=== PATIENT | female | born 1955 | race African-American/Black ===

== ENCOUNTER 2016-11-01 18:28 | Inpatient (IN) | payer OTHER ==
[~2016-11-01] VITALS: Ht 160 cm; Wt 40.8 kg
--- NOTE | ~2016-11-01 | EKG ---
[address] [place] [address] ELECTROCARDIOGRAM REPORT Name: CARINAROLY Room #: 463-P ADM IN M.R.#: [id number] Admission: 11/01/16 Attend Phys: Damián Baxter MD Discharge: Date of : 53 Report #: [id number] THIS REPORT FOR: //name// [facility] ED Test Date: 2016-11-01 Test Time: 18:40:23 Pat Name: ROLY LIM Department: Room: 46 Gender: F Security Messenger: KENY : 1955 Requested By: Avtar Perez Order Number: [id number] MD: Bogdan Lopez Measurements Intervals [place] Rate: 113 P: 99 OK: 136 QRS: 58 QRSD: 123 T: QT: 383 QTc: 526 Interpretive Statements Sinus tachycardia Nonspecific ST and T wave abnormality Baseline wander in lead(s) II No previous ECG available for comparison Electronically Signed On 11-02-2016 7:58:15 CDT by Bogdan Lopez [email or web address] <ELECTRONICALLY SIGNED> By: Bogdan Lopez MD, [facility] 11/02/16 0758 1840 1840 Bogdan Lopez MD, [facility] /EPI
[~2016-11-01 18:28] MED LIST: FLEXERIL PO; GLUCOPHAGE1000 MG PO; HYDROCODON-ACE1 EAC7 PO; LANTUS SUBQ; LOSARTAN POTASS50 MG PO; NOVOLOG100 UNIT/1; OMEPRAZOLE20 M2 PO; REGLAN 10 MG TA10 MG PO
[2016-11-01 18:29] VITALS: BP 191/100
[2016-11-01 19:00] LABS: ABSOLUTE NEUTROPHILS 7.1 thou/uL (1.4-8.2); EOSINOPHILS 0.1 % (0.0-3.0); HEMATOCRIT 35.8 % (37.0-47.0)
[2016-11-01 19:04] LABS: BASOPHILS 0.3 % (0.0-2.0); LYMPHOCYTES 30.4 % (24.0-44.0); MCH 28.7 pg (26.0-34.0); MCHC 33.6 g/dL (28.0-37.0); MCV 85.5 fL (80.0-100.0); MONOCYTES 2.5 % (1.0-8.0); PLATELET COUNT 149 thou/uL (150-400); POLYS 66.7 % (36.0-66.0); RBC 4.18 mil/uL (4.20-5.00); RDW 12.1 % (10.5-14.5); WBC 10.6 thou/uL (4.0-11.0)
[2016-11-01 19:05] LABS: ANION GAP 4 mmol/L (7-16); BUN 5 mg/dL (7-18); CALCIUM 9.3 mg/dL (8.5-10.1); CHLORIDE 99 mmol/L (98-107); CO2 32 mmol/L (21-32); CREATININE 0.8 mg/dL (0.6-1.0); GLUCOSE 395 mg/dL (74-106); MANUAL DIFF NO; POTASSIUM 4.1 mmol/L (3.5-5.1); SODIUM 135 mmol/L (136-145)
[2016-11-01 19:13] LABS: MAGNESIUM 1.9 mg/dL (1.8-2.4); TROPONIN-I < 0.04 ng/mL (<0.04-0.07)
[2016-11-01 19:40] LABS: ABG SAMPLE TYPE ARTERIAL; BE(vivo) 6.7 mmol/L (-2 to +3); HCO3 30.6 mmol/L (22.0-26.0); LACTATE 1.09 mmol/L (0.5-2.0); O2(CT) 16.8 mL/dL (15.0-23.0); O2Hb 92.3 % (92.0-98.0); PO2 71.7 mmHg (80.0-100.0); STICK SITE R.RADIAL; pH 7.491 (7.360-7.450); sO2 95.5 % (92.0-98.0); tCO2 31.9 mmol/L (24.0-30.0)
[2016-11-01 19:41] LABS: ALBUMIN 2.8 g/dL (3.4-5.0); DIRECT BILIRUBIN 0.1 mg/dL (<0.1-0.3); TOTAL BILIRUBIN 0.5 mg/dL (<0.1-1.0); TOTAL PROTEIN 8.9 g/dL (6.4-8.2)
[2016-11-01 20:34] LABS: URINE BILIRUBIN NEGATIVE (Negative); URINE BLOOD 2+ (Negative); URINE COLOR YELLOW; URINE GLUCOSE-RANDOM* 3+ (Negative); URINE KETONES NEGATIVE (Negative); URINE LEUKOCYTES-REFLEX NEGATIVE (Negative); URINE PROTEIN (DIPSTICK) 2+ (Negative); URINE SPECIFIC GRAVITY 1.015 (1.003-1.035); URINE UROBILINOGEN 0.2 E.U./dl (0.2-1.0)
[2016-11-01] MEDS ORDERED: TOUJEO SOL300 UNIT/1 SUBQ (20:37)
[2016-11-01] MEDS ORDERED: VITAMIN D3400 UNIT PO (20:37)
[2016-11-01] MEDS ORDERED: REGLAN 10 MG TA10 MG PO (20:38)
[2016-11-01] MEDS ORDERED: COZAAR 50 MG TA50 M2 PO (20:38)
[2016-11-01] MEDS ORDERED: OMEPRAZOLE20 M2 PO (20:38)
[2016-11-01] MEDS ORDERED: METFORMIN HCL500 MG PO (20:39)
[2016-11-01] MEDS ORDERED: ZANAFLEX4 MG PO (20:39)
[2016-11-01] MEDS ORDERED: HUMALOG100 UNIT/2 SUBQ (20:40)
[2016-11-01] MEDS ORDERED: MIRTAZAPINE15 M1 SUBLING (20:40)
[2016-11-01 20:51] LABS: CASTS None Seen /LPF (None Seen); CRYSTALS None Seen /LPF (None Seen); SQUAMOUS 0-3 Few /LPF (0-3); URINE RBC 3-10 Few /HPF (0-2); URINE WBC-REFLEX 0-5 Rare /HPF (0-5); YEAST-REFLEX Present (None Seen)
[2016-11-01 22:20] VITALS: BP 180/111
[2016-11-02 04:45] VITALS: BP 105/60
[2016-11-02 07:58] VITALS: BP 107/54
[2016-11-02 12:30] VITALS: BP 103/58
[2016-11-02 15:38] LABS: FOLIC ACID 17.3 ng/mL (8.6-58.9)
[2016-11-02 17:20] VITALS: BP 151/69
[2016-11-02 20:16] VITALS: BP 136/94
[2016-11-02 21:05] LABS: CHOLESTEROL 137 mg/dL (<200); HDL CHOLESTEROL 66 mg/dL (>40); LDL CHOLESTEROL 56 mg/dL (<100); TC:HDL 2.1 Ratio (Not establshd); TRIGLYCERIDE 75 mg/dL (<150); VLDL 15 mg/dL (<40)
[2016-11-03 03:14] LABS: GLYCOHEMOGLOBIN (HGB A1C) 11.8 % (4.8-5.6)
[2016-11-03 04:06] VITALS: BP 130/66
[2016-11-03 06:38] LABS: ABSOLUTE NEUTROPHILS 8.3 thou/uL (1.4-8.2); BASOPHILS 0.2 % (0.0-2.0); EOSINOPHILS 0.5 % (0.0-3.0); HEMATOCRIT 29.4 % (37.0-47.0); LYMPHOCYTES 30.8 % (24.0-44.0); MCH 28.5 pg (26.0-34.0); MCHC 33.1 g/dL (28.0-37.0); MCV 85.9 fL (80.0-100.0); MONOCYTES 3.6 % (1.0-8.0); PLATELET COUNT 91 thou/uL (150-400); POLYS 64.9 % (36.0-66.0); RBC 3.43 mil/uL (4.20-5.00); RDW 12.4 % (10.5-14.5); WBC 12.7 thou/uL (4.0-11.0)
[2016-11-03 06:43] LABS: HEMOGLOBIN 9.8 gm/dL (12.0-15.0); MANUAL DIFF NO
[2016-11-03 06:48] LABS: CALCIUM 7.6 mg/dL (8.5-10.1); CREATININE 0.7 mg/dL (0.6-1.0); MAGNESIUM 1.6 mg/dL (1.8-2.4); POTASSIUM 3.2 mmol/L (3.5-5.1)
[2016-11-03 07:37] VITALS: BP 133/67
[2016-11-03 11:17] VITALS: BP 125/57
[2016-11-03 16:13] VITALS: BP 141/66
[2016-11-03 20:40] VITALS: BP 114/57
[2016-11-04 04:28] VITALS: BP 118/60
[2016-11-04 07:53] VITALS: BP 132/62
[2016-11-04] MEDS ORDERED: NYSTATIN 1100000 U/M SWISH&SPIT (10:58)
[2016-11-04 12:10] VITALS: BP 154/60
[2016-11-04] MEDS ORDERED: TOUJEO SOL300 UNIT/1 SUBQ (12:13)
[2016-11-04] MEDS ORDERED: HUMALOG100 UNIT/2 SUBQ (12:13)
[2016-11-04 14:09] LABS: ALPHA TOCOPHEROL 6.5 mg/L (6.5-21.5)
[2016-11-04 19:42] VITALS: BP 118/72
[2016-11-05 04:28] VITALS: BP 130/80
[2016-11-05 07:23] VITALS: BP 129/75
[2016-11-05 11:44] VITALS: BP 110/74
[2016-11-05 15:55] VITALS: BP 135/64
[2016-11-05 19:30] VITALS: BP 137/66
[2016-11-06 03:55] VITALS: BP 112/62
[2016-11-06 07:45] VITALS: BP 110/66
[2016-11-06 11:45] VITALS: BP 138/79
[2016-11-06 12:30] VITALS: BP 122/72
[2016-11-06 14:03] LABS: HEMATOCRIT 31.1 % (37.0-47.0); HEMOGLOBIN 10.2 gm/dL (12.0-15.0); MCHC 32.9 g/dL (28.0-37.0); RBC 3.54 mil/uL (4.20-5.00); RDW 12.6 % (10.5-14.5); WBC 7.7 thou/uL (4.0-11.0)
[2016-11-06 15:43] LABS: URINE BILIRUBIN NEGATIVE (Negative); URINE BLOOD 3+ (Negative); URINE GLUCOSE-RANDOM* NEGATIVE (Negative); URINE KETONES TRACE (Negative); URINE LEUKOCYTES-REFLEX TRACE (Negative); URINE PROTEIN (DIPSTICK) 2+ (Negative); URINE UROBILINOGEN 0.2 E.U./dl (0.2-1.0)
[2016-11-06 15:44] LABS: URINE COLOR RED
[2016-11-06 15:45] LABS: SQUAMOUS 0-3 Few /LPF (0-3)
[2016-11-06 15:46] LABS: CASTS None Seen /LPF (None Seen); CRYSTALS None Seen /LPF (None Seen); URINE RBC >20 Many /HPF (0-2); URINE WBC-REFLEX 6-15 Few /HPF (0-5)
[2016-11-06 17:39] VITALS: BP 123/70
[2016-11-06 20:21] VITALS: BP 113/66
[2016-11-07 04:19] VITALS: BP 122/65
[2016-11-07 08:08] VITALS: BP 134/63
[2016-11-07] MEDS ORDERED: DIFLUCAN200 MG PO (11:10)
[2016-11-07] MEDS ORDERED: HUMALOG100 UNIT/2 SUBQ (11:10)
[2016-11-07] MEDS ORDERED: TOUJEO SOL300 UNIT/1 SUBQ (11:10)
[2016-11-07 12:04] VITALS: BP 142/64
[2016-11-07 15:47] VITALS: BP 133/71
[2016-11-07 19:43] VITALS: BP 128/69
[2016-11-08 03:53] VITALS: BP 131/67
[2016-11-08 08:37] VITALS: BP 134/75
[2016-11-08 11:48] VITALS: BP 139/72
[2016-11-08 16:01] VITALS: BP 125/67
[2016-11-08 20:00] VITALS: BP 127/68
[2016-11-09 04:00] VITALS: BP 136/77
[2016-11-09 10:07] LABS: A/G RATIO 0.6 (0.7-1.7); ALBUMIN 2.7 g/dL (2.9-4.4); ALPHA 1 0.2 g/dL (0.0-0.4); ALPHA 2 0.8 g/dL (0.4-1.0); BETA 1.1 g/dL (0.7-1.3); GAMMA 2.5 g/dL (0.4-1.8); M-SPIKE Not Observed g/dL (Not Observed)
[2016-11-09] MEDS ORDERED: TOUJEO SOL300 UNIT/1 SUBQ (10:15)
[2016-11-09 11:30] VITALS: BP 128/51
[2016-11-09 12:30] VITALS: BP 128/51
[2016-11-09 15:47] VITALS: BP 128/65
== END 2016-11-09 20:00 | disposition home health service (06) | DRG 637 ==
LOC: ER 18:28 → EROBS 21:52 → 4W 21:52
PROVIDERS: Emergency Medicine; Internal Medicine; Nurse Practitioner Acute Care; Psychiatry & Neurology Neurology
DX: E11.65 Type 2 diabetes mellitus with hyperglycemia (principal); G92 Toxic encephalopathy; E43 Unspecified severe protein-calorie malnutrition; Z68.1 Body mass index [BMI] 19.9 or less, adult; B37.49 Other urogenital candidiasis; I10 Essential (primary) hypertension; F32.9 Major depressive disorder, single episode, unspecified; R74.8 Abnormal levels of other serum enzymes; D72.829 Elevated white blood cell count, unspecified; R31.9 Hematuria, unspecified; M79.604 Pain in right leg; T43.025A Adverse effect of tetracyclic antidepressants, initial encounter; J44.9 Chronic obstructive pulmonary disease, unspecified; F17.210 Nicotine dependence, cigarettes, uncomplicated; Z79.84 Long term (current) use of oral hypoglycemic drugs; Z79.4 Long term (current) use of insulin; Z79.899 Other long term (current) drug therapy; Z88.8 Allergy status to other drugs, medicaments and biological substances; Y92.89 Other specified places as the place of occurrence of the external cause
CPT/HCPCS: 10045

== ENCOUNTER 2017-09-15 21:08 | Inpatient (IN) | payer OTHER ==
[~2017-09-15] VITALS: Ht 170.2 cm; Wt 52.5 kg
--- NOTE | ~2017-09-15 | EKG ---
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 Allergist Immunologist: [id number] : 1955 Requested By: Nevin Mckeon Order Number: [id number] MD: Bogdan Lopez Measurements Intervals [place] Rate: 93 P: 100 VA: 141 QRS: 25 QRSD: 82 T: 80 QT: 380 QTc: 473 Interpretive Statements Sinus rhythm Borderline low voltage, extremity leads Nonspecific ST segment abnormality Baseline wander in lead(s) V1 Compared to ECG 11/01/2016 18:40:23 Sinus tachycardia no longer present Electronically Signed On 09-18-2017 7:47:57 CDT by Bogdan Lopez [email or web address] <ELECTRONICALLY SIGNED> By: Bogdan Lopez MD, [facility] 09/18/17 0747 221 221 Bogdan Lopez MD, [facility] /EPI
--- NOTE | ~2017-09-15 | HC ---
[facility] [place] [address] CONSULTATION Name: CARINAROLY Room #: [facility]- ADM IN M.R.#: [id number] Admission: 09/15/17 Attend Phys: Johnathan Mckeon DO Discharge: Date of : 53 Report #: [id number] THIS REPORT FOR: //name// CC: ANAMARIA Mckeon DATE OF SERVICE: 09/16/2017 INFECTIOUS DISEASE CONSULTATION HISTORY OF PRESENT ILLNESS: A 61-year-old -[place] woman admitted through the Emergency Room with history of altered mental status. In the ER, found to have low glucose. Mental status did not change after infusion of glucose, neither did it improve after infusion of Narcan. The patient remains encephalopathic and unable to participate in the history and physical exam. All information on this patient is gathered from the review of records. PAST MEDICAL HISTORY: Previous episode of encephalopathy, undetermined etiology; anemia of chronic disease. Severe hypoalbuminemia. Diabetes mellitus. Chronic obstructive pulmonary disease. DRUG ALLERGIES: IBUPROFEN. MEDICATIONS: 2 grams IV every 8 hours, Levaquin 750 mg IV daily. She is also on famotidine, p.r.n. glucose, Glucagon, magnesium and potassium supplementation per protocol. She did receive naloxone and Zosyn IV. SOCIAL HISTORY: Unable to obtain. FAMILY HISTORY: Unable to obtain. REVIEW OF SYSTEMS: Unable to obtain. PHYSICAL EXAMINATION: GENERAL: Chronically ill-appearing woman, afebrile since admission. VITAL SIGNS: Temperature 97, pulse 97, respirations 20, BP 146/83 and O2 saturation is 100% on 2 liters oxygen nasal cannula. HEENT: The patient closing mouth tightly and so is she doing with her eyes. I wonder if this is purposeful. NECK: Stiff. The patient is stiff all over. Jugular venous congestion. LUNGS: Decreased breath sounds throughout. HEART: S1, S2. No gallop or murmur. ABDOMEN: Soft. No masses or megaly. PELVIC AND RECTAL EXAMINATION: Deferred. The patient's . EXTREMITIES: No clubbing, cyanosis. NEUROLOGIC: Unable to evaluate. [facility] [address] [place] [address] CONSULTATION Name: ROLY LIM Room #: [facility] IN .R.#: [id number] Admission: 09/15/17 Attend Phys: Johnathan Mckeon DO Discharge: Date of : 53 Report #: [id number] LABORATORY DATA: Sodium 140, potassium 3.2, CO2 of 30, BUN 14, creatinine 1, glucose 100. Calcium 8. Albumin 1.7 mg/dL. Ammonia back in 2016 was normal. Drug screen negative. WBC 24,100, hemoglobin 7.6 g/dL and platelets 235,000. Admission CBC, white blood cell count differential showing 88% neutrophils. TSH normal. Ferritin 269. Folate normal. B12 normal. Urinalysis revealed proteinuria, trace glucose, trace leukocyte esterase, microscopic hematuria and bacteriuria. ABGs: A pH of 7.46, pCO2 of 38, pO2 of 70 and bicarbonate 27. This set of gas was on 2 liters oxygen nasal cannula. MICROBIOLOGY DATA: Blood cultures pending. Stool for occult blood pending. RADIOLOGY EVALUATION: Chest x-ray revealed patchy right-sided pulmonary infiltrate. ASSESSMENT: 1. Altered mental status, undetermined etiology. 2. Question aspiration pneumonia. 3. Diabetes mellitus. SUGGESTIONS: Recommend ESR, CRP, procalcitonin and NT-proBNP. Discharge . Meropenem 500 IV q. 8 hours. Vancomycin to be dosed by pharmacy. Continue Levaquin. Fluid resuscitation. Dr. Mckeon, thank you for requesting my suggestions. <ELECTRONICALLY SIGNED> By: Dl Lang MD 09/17/17 0647 0647 1326 lD Lang MD /nt
[~2017-09-15 21:08] MED LIST changes: +COZAAR 50 MG TA50 M2 PO; +DIFLUCAN200 MG PO; +HUMALOG100 UNIT/2 SUBQ; +METFORMIN HCL500 MG PO; +MIRTAZAPINE15 M1 SUBLING; +NYSTATIN 1100000 U/M SWISH&SPIT; +TOUJEO SOL300 UNIT/1 SUBQ; +VITAMIN D3400 UNIT PO; +ZANAFLEX4 MG PO
[2017-09-15 21:10] VITALS: BP 146/83
[2017-09-15 21:42] LABS: URINE BILIRUBIN NEGATIVE (Negative); URINE BLOOD 3+ (Negative); URINE CLARITY CLEAR; URINE COLOR YELLOW; URINE GLUCOSE-RANDOM* TRACE (Negative); URINE KETONES NEGATIVE (Negative); URINE LEUKOCYTES NEGATIVE (Negative); URINE NITRITE NEGATIVE (Negative); URINE PROTEIN (DIPSTICK) 3+ (Negative); URINE UROBILINOGEN 0.2 E.U./dl (0.2-1.0)
[2017-09-15 21:48] LABS: AMP/METHAMP Negative (Negative); BARBITURATES Negative (Negative); BENZODIAZEPINES Negative (Negative); COCAINE Negative (Negative); METHADONE Negative (Negative); OPIATES Negative (Negative); PCP Negative (Negative)
[2017-09-15 21:51] LABS: SQUAMOUS 0-3 Few /LPF (0-3); URINE RBC >20 Many /HPF (0-2)
[2017-09-15 21:52] LABS: CASTS None Seen /LPF (None Seen); CRYSTALS None Seen /LPF (None Seen); URINE WBC 0-5 Rare /HPF (0-5)
[2017-09-15 22:00] VITALS: BP 133/70
[2017-09-15 22:01] LABS: ABSOLUTE NEUTROPHILS 12.1 thou/uL (1.4-8.2); BASOPHILS 0.2 % (0.0-2.0); HEMATOCRIT 21.6 % (37.0-47.0); HEMOGLOBIN 7.1 gm/dL (12.0-15.0); LYMPHOCYTES 9.6 % (24.0-44.0); MCH 29.1 pg (26.0-34.0); MCHC 33.1 g/dL (28.0-37.0); MCV 88.1 fL (80.0-100.0); MONOCYTES 2.2 % (1.0-8.0); PLATELET COUNT 226 thou/uL (150-400); RBC 2.45 mil/uL (4.20-5.00); RDW 12.6 % (10.5-14.5); WBC 13.7 thou/uL (4.0-11.0)
[2017-09-15 22:08] LABS: CALCIUM 7.6 mg/dL (8.5-10.1)
[2017-09-15 22:10] LABS: POTASSIUM 2.9 mmol/L (3.5-5.1)
[2017-09-15 22:11] LABS: BE(vivo) 3.1 mmol/L (-2 to +3); PCO2 38.2 mmHg (35.0-45.0); PO2 70.6 mmHg (80.0-100.0); pH 7.467 (7.360-7.450); sO2 95.1 % (92.0-98.0)
[2017-09-15 22:18] LABS: ALBUMIN 1.7 g/dL (3.4-5.0); DIRECT BILIRUBIN 0.1 mg/dL (<0.1-0.3); TOTAL BILIRUBIN 0.2 mg/dL (<0.1-1.0); TOTAL PROTEIN 7.2 g/dL (6.4-8.2)
[2017-09-15 23:34] VITALS: BP 133/70
[2017-09-16] VITALS (32 sets, daily range): BP systolic 59–180; BP diastolic 41–139
[2017-09-16 04:43] LABS: HEMATOCRIT 22.9 % (37.0-47.0); HEMOGLOBIN 7.6 gm/dL (12.0-15.0); MCH 29.1 pg (26.0-34.0); MCV 88.4 fL (80.0-100.0); RBC 2.59 mil/uL (4.20-5.00); RDW 12.8 % (10.5-14.5); WBC 24.1 thou/uL (4.0-11.0)
[2017-09-16 04:55] LABS: POTASSIUM 3.2 mmol/L (3.5-5.1)
[2017-09-16 04:59] LABS: % SATURATION 14 % (20-39); IRON 22 ug/dL (50-170); TIBC 162 ug/dL (250-450)
[2017-09-16 05:25] LABS: FOLIC ACID 15.9 ng/mL (8.6-58.9); TSH 1.672 uIU/mL (0.358-3.740)
[2017-09-16 17:07] LABS: GLYCOHEMOGLOBIN (HGB A1C) 7.4 % (4.8-5.6)
[2017-09-17 03:34] VITALS: BP 147/76
[2017-09-17 08:11] VITALS: BP 139/81
[2017-09-17 12:20] VITALS: BP 126/71; BP 154/92
[2017-09-17 16:00] VITALS: BP 145/73
[2017-09-17 20:00] VITALS: BP 147/84
[2017-09-18 04:00] VITALS: BP 139/82
[2017-09-18 08:49] VITALS: BP 146/80
[2017-09-18 20:00] VITALS: BP 130/69
[2017-09-19] VITALS: BP 138/74
[2017-09-19 03:00] VITALS: BP 138/76
[2017-09-19 07:43] VITALS: BP 140/70
[2017-09-19 15:08] VITALS: BP 116/79
[2017-09-19 20:23] VITALS: BP 151/90
[2017-09-20 05:00] VITALS: BP 160/93
[2017-09-20 08:42] VITALS: BP 156/82
[2017-09-20] MEDS ORDERED: NOVOLOG100 UNIT/1 SUBQ (13:08)
[2017-09-20] MEDS ORDERED: MEROPENEM 1 GM V1 GM IV (13:08)
[2017-09-20 14:24] LABS: EOSINOPHILS 0.4 % (0.0-3.0)
[2017-09-20 14:26] LABS: ABSOLUTE NEUTROPHILS 11.8 thou/uL (1.4-8.2); BASOPHILS 0.1 % (0.0-2.0); HEMATOCRIT 20.9 % (37.0-47.0); HEMOGLOBIN 6.7 gm/dL (12.0-15.0); LYMPHOCYTES 13.5 % (24.0-44.0); MCH 28.6 pg (26.0-34.0); MCV 89.6 fL (80.0-100.0); MONOCYTES 3.7 % (1.0-8.0); PLATELET COUNT 191 thou/uL (150-400); POLYS 82.3 % (36.0-66.0); RBC 2.33 mil/uL (4.20-5.00); RDW 13.3 % (10.5-14.5); WBC 14.4 thou/uL (4.0-11.0)
== END 2017-09-20 16:24 | DRG 871 ==
LOC: ER 21:08 → EROBS 22:42 → 4N 22:42 → ICU 23:00 → 4N 09-16 14:20
PROVIDERS: Emergency Medicine; Nurse Practitioner Family; Specialist
DX: A41.9 Sepsis, unspecified organism (principal); J69.0 Pneumonitis due to inhalation of food and vomit; J96.21 Acute and chronic respiratory failure with hypoxia; G93.41 Metabolic encephalopathy; E46 Unspecified protein-calorie malnutrition; Z68.1 Body mass index [BMI] 19.9 or less, adult; E11.649 Type 2 diabetes mellitus with hypoglycemia without coma; J44.9 Chronic obstructive pulmonary disease, unspecified; I10 Essential (primary) hypertension; D64.9 Anemia, unspecified; Y95 Nosocomial condition; E87.6 Hypokalemia; E83.42 Hypomagnesemia; E11.42 Type 2 diabetes mellitus with diabetic polyneuropathy; R26.9 Unspecified abnormalities of gait and mobility; E55.9 Vitamin D deficiency, unspecified; F17.210 Nicotine dependence, cigarettes, uncomplicated; Z79.4 Long term (current) use of insulin; Z79.899 Other long term (current) drug therapy; Z88.8 Allergy status to other drugs, medicaments and biological substances
CPT/HCPCS: 10078; 10790

== ENCOUNTER 2017-09-22 19:13 | Inpatient (IN) | payer OTHER ==
[~2017-09-22] VITALS: Ht 170.2 cm; Wt 65.2 kg
--- NOTE | ~2017-09-22 | EKG ---
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: BRAULIO : 1955 Requested By: Rocky Carrasquillo Order Number: [id number] MD: Bogdan Lopez Measurements Intervals [place] Rate: 98 P: 70 VT: 138 QRS: -1 QRSD: 75 T: 103 QT: 330 QTc: 422 Interpretive Statements Sinus tachycardia with occasional atrial premature complexes Low voltage Nonspecific T abnormalities Compared to ECG 09/15/2017 22:11:30 Atrial premature complexes are now present Electronically Signed On 09-24-2017 10:06:01 CDT by Bogdan Lopez [email or web address] <ELECTRONICALLY SIGNED> By: Bogdan Lopez MD, [facility] 09/24/17 1006 25 25 Bogdan Lopez MD, [facility] /EPI
--- NOTE | ~2017-09-22 | 2DMMODE ---
[facility] [address] [place] [address] 2 D/M-MODE ECHOCARDIOGRAM Name: ROLY LIM Room #: 349-I ADM IN [facility].#: [id number] Admission: 09/22/17 Attend Phys: Rolando Alonso, Discharge: Date of : 53 Date of Service: 09/23/17 1339 Report #: [id number] THIS REPORT FOR: //name// APPROVED REPORT Study performed: 09/23/2017 09:36:31 EXAM: Comprehensive 2D, Doppler, and color-flow Echocardiogram Patient Location: Bedside Room #: 353 Status: routine BSA: 1.72 HR: 97 bpm BP: 139/86 mmHg Other Information Study Quality: Good Indications COPD Diabetes Hypertension/HDD Mildly elevated troponin 2D Dimensions RVDd: 33.39 mm LVEF(%): 31.95 (>50%) IVSd: 9.38 (7-11mm) LVOT Diam: 21.68 (18-24mm) LVDd: 47.49 mm PWd: 12.41 (7-11mm) Ascending Ao: 24.26 (22-36mm) LVDs: 40.33 (25-40mm) Aortic Root: 28.21 mm IVC: 20.00 mm Medrano's LVEF: 31.95 % Volumes Left Atrial Volume (Systole) Single Plane 4CH: 44.97 mL Single Plane 2CH: 48.88 mL LA ESV Index: 33.00 mL/m2 Aortic Valve AoV Peak Red.: 0.83 m/s AO Peak Gr.: 2.77 mmHg LVOT Max P.16 mmHg LVOT Max V: 0.54 m/s LOLY Vmax: 2.39 cm2 [facility] [address] [place] [address] 2 D/M-MODE ECHOCARDIOGRAM Name: LIMROLY Room #: 349-I [facility] IN [facility].#: [id number] Admission: 09/22/17 Attend Phys: Rolando Alonso, Discharge: Date of : 53 Date of Service: 09/23/17 1339 Report #: [id number] Mitral Valve E/A Ratio: 1.1 MV Decel. Time: 141.59 ms MV E Max Red.: 0.72 m/s MV A Red.: 0.65 m/s IVRT: 117.65 ms Pulmonary Valve PV Peak Red.: 0.67 m/s PV Peak Gr.: 1.81 mmHg Tricuspid Valve TR Peak Red.: 4.04 m/s RAP Estimate: 10.00 mmHg TR Peak Gr.: 65.14 mmHg Left Ventricle The left ventricle is normal size. There is global hypokinesis of the left ventricle. There is normal left ventricular wall thickness. Left ventricular ejection fraction is moderate to severely decreased. LVEF 35%. This study is not technically sufficient to allow evaluation of the LV diastolic function. Right Ventricle The right ventricle is normal size. The right ventricular systolic function is normal. Atria Left atrium is at the upper limits of normal. The right atrium size is normal. Aortic Valve The aortic valve is normal in structure. No aortic regurgitation is present. There is no aortic valvular stenosis. Mitral Valve The mitral valve is normal in structure. Mild to moderate mitral regurgitation. No evidence of mitral valve stenosis. Tricuspid Valve The tricuspid valve is normal in structure. Moderate tricuspid regurgitation. PAP is estimated at 75 mmHg. Pulmonic Valve The pulmonary valve is normal in structure. There is no pulmonic valvular regurgitation. [employer] [facility] [address] [place] [address] 2 D/M-MODE ECHOCARDIOGRAM Name: ROLY LIM Room #: 349-I [facility] IN ..#: [id number] Admission: 09/22/17 Attend Phys: Rolando Alonso, Discharge: Date of : 53 Date of Service: 09/23/17 1339 Report #: [id number] The aortic root is normal in size. IVC is upper limits of normal in size and collapses <50% with inspiration. Pericardium Trace pericardial effusion. <Conclusion> Left ventricular ejection fraction is moderate to severely decreased. There is global hypokinesis of the left ventricle. LVEF 35%. The aortic valve is normal in structure. No aortic valvular stenosis or insufficiency. The mitral valve is normal in structure. Mild to moderate mitral regurgitation. Moderate tricuspid regurgitation. Pulmonary artery pressure estimated at 75 mmHg. Trace pericardial effusion. <ELECTRONICALLY SIGNED> By: Bogdan Lopez MD, [facility] 09/23/179 38 38 Bogdan Lopez MD, FAC /INF
--- NOTE | ~2017-09-22 | HC ---
[facility] [place] [address] CONSULTATION Name: CARINAROLY Room #: 349-I ADM IN .R.#: [id number] Admission: 09/22/17 Attend Phys: Remberto Corea MD Discharge: Date of : 53 Report #: [id number] THIS REPORT FOR: //name// CC: Yao Corea DATE OF SERVICE: 09/25/2017 NEPHROLOGY CONSULTATION ATTENDING PHYSICIAN: Dr. Alexandra. REASON FOR CONSULTATION: Elevated creatinine. HISTORY OF PRESENT ILLNESS: A 61-year-old patient with long-standing diabetes, a chronically ill patient with history of COPD, cigarette smoking, cognitive impairment and long-standing diabetes mellitus, who initially was admitted with aspiration pneumonia and hypoglycemia 9 days ago and was discharged 5 days ago to extended care facility, but readmitted 3 days ago with ongoing pneumonia, thought to be aspiration; poor mental status; anemia, possibly due to GI bleed and now elevated creatinine from a baseline initially as determined last year of 0.7, up to a baseline of 1 on the day of her recent admission and then gradually likely elevating over the next week to 1.7 or so, where she has been stable now for the last 3-4 days. Treatments have included antibiotics and attempts at diuresis for volume overload, but despite this, she has had ongoing shortness of air and confusion throughout her last 9 days of hospital and alf stay. PAST MEDICAL HISTORY: Otherwise very difficult to determine any sort of history. The patient is not giving us much. The family, when quizzed and counseled, did not give us much either. We do know that she has had the diabetes, COPD with smoking, lives with her son, chronic cognitive impairment, some history apparently of peripheral neuropathy, generalized edema and right-sided heart failure as well. HOME MEDICATIONS: Had been losartan 50 mg daily, omeprazole 20 mg daily, vitamin D, metformin 1000 mg b.i.d., insulin, Diflucan and she has been treated with vancomycin, meropenem and levofloxacin over the last 9 days as antibiotics. FAMILY HISTORY: Cannot be obtained. There is no pertinent family history per old charts. SOCIAL HISTORY: She is a smoker and lives with her son and has some degree of chronic confusion. REVIEW OF SYSTEMS: Cannot be obtained. [address] [address] CONSULTATION Name: ROLY LIM [facility] .R.#: [id number] Admission: 09/22/17 Attend Phys: Remberto Corea MD Discharge: Date of : 53 Report #: [id number] PHYSICAL EXAMINATION: GENERAL: Thin elderly patient, somewhat tachypneic. SKIN: Shows a lot of scaly, brawny changes throughout, with worse changes in her right montanez. SKELETAL: Shows her to be non-obese, well developed and well nourished. HEENT: Extraocular movements appear to be full. No scleral icterus. Hearing and vision appear to be intact, but difficult to test. The mucous membranes may be slightly dry. NECK: Slightly stiff and JVD is apparent. CHEST: Shows noisy coarse respirations. HEART: Distant. ABDOMEN: Slightly firm. EXTREMITIES: Show 2- to 3+ generalized edema, brawny and places with thickened scaling skin. NEUROLOGIC: Confusion, but moving all extremities. LABORATORY DATA: The urinalysis did show proteinuria as well as leukocyturia and bacteriuria, suggesting UTI. The hemoglobin was 6.7 and it is up to 8.6, presumably she had blood transfusions and Platelets 208,000. Sodium 141, potassium 4.1, chloride 108, bicarbonate 25, creatinine 1.7 and BUN 28. ASSESSMENT AND PLAN: Elevated creatinine. She is acutely and chronically ill. I am unsure as to where her creatinine is elevated. Serological workup will be performed. I believe some Lasix has been ordered, which certainly seems appropriate given her volume overload and possible worsening respiratory status, although I suspect infection may be playing the large role. We will follow her along. It appears that a renal sonogram might also be indicated here along with a urine protein studies and serological studies. By: [id number] Tobin Gama MD /nt
[~2017-09-22 19:13] MED LIST changes: +MEROPENEM 1 GM V1 GM IV; +NOVOLOG100 UNIT/1 SUBQ
[2017-09-22 19:16] VITALS: BP 131/74
[2017-09-22 19:53] LABS: ABSOLUTE NEUTROPHILS 10.6 thou/uL (1.4-8.2); BASOPHILS 0.2 % (0.0-2.0); EOSINOPHILS 0.4 % (0.0-3.0); HEMOGLOBIN 6.9 gm/dL (12.0-15.0); LYMPHOCYTES 21.6 % (24.0-44.0); MCH 28.8 pg (26.0-34.0); MCHC 32.7 g/dL (28.0-37.0); MCV 88.2 fL (80.0-100.0); MONOCYTES 4.4 % (1.0-8.0); PLATELET COUNT 204 thou/uL (150-400); POLYS 73.4 % (36.0-66.0); RBC 2.38 mil/uL (4.20-5.00); RDW 12.7 % (10.5-14.5); WBC 14.5 thou/uL (4.0-11.0)
[2017-09-22 19:59] LABS: CALCIUM 7.7 mg/dL (8.5-10.1); CREATININE 1.7 mg/dL (0.6-1.0); POTASSIUM 3.8 mmol/L (3.5-5.1)
[2017-09-22 20:07] LABS: APTT 29.1 Seconds (24.5-32.8); INR 1.1; PROTIME 11.3 Seconds (9.3-11.4)
[2017-09-22 20:08] LABS: ALBUMIN 1.5 g/dL (3.4-5.0); MAGNESIUM 1.6 mg/dL (1.8-2.4); TOTAL BILIRUBIN 0.2 mg/dL (<0.1-1.0); TOTAL PROTEIN 7.1 g/dL (6.4-8.2); TROPONIN-I 0.1 ng/mL (<0.06)
[2017-09-22 20:11] LABS: URINE BILIRUBIN NEGATIVE (Negative); URINE BLOOD 3+ (Negative); URINE COLOR YELLOW; URINE GLUCOSE-RANDOM* NEGATIVE (Negative); URINE KETONES NEGATIVE (Negative); URINE NITRITE-REFLEX NEGATIVE (Negative); URINE PROTEIN (DIPSTICK) 3+ (Negative); URINE SPECIFIC GRAVITY >= 1.030 (1.005-1.035); URINE UROBILINOGEN 0.2 E.U./dl (0.2-1.0)
[2017-09-22 20:15] LABS: URINE LEUKOCYTES-REFLEX 2+ (Negative)
[2017-09-22 20:16] LABS: URINE CLARITY HAZY
[2017-09-22 20:30] LABS: SQUAMOUS 0-3 Few /LPF (0-3); URINE WBC-REFLEX >25 Many /HPF (0-5)
[2017-09-22 20:32] LABS: CASTS None Seen /LPF (None Seen)
[2017-09-22 20:33] LABS: CRYSTALS None Seen /LPF (None Seen)
[2017-09-22 21:43] VITALS: BP 131/74
[2017-09-22 21:59] VITALS: BP 138/78
[2017-09-22 22:20] VITALS: BP 121/75
[2017-09-23 02:08] VITALS: BP 139/85; BP 140/70
[2017-09-23 04:05] VITALS: BP 140/77
[2017-09-23 08:02] LABS: HEMATOCRIT 25.3 % (37.0-47.0); HEMOGLOBIN 8.2 gm/dL (12.0-15.0); MCH 28.6 pg (26.0-34.0); MCHC 32.5 g/dL (28.0-37.0); MCV 88.1 fL (80.0-100.0); RBC 2.87 mil/uL (4.20-5.00); RDW 13.4 % (10.5-14.5); WBC 15.8 thou/uL (4.0-11.0)
[2017-09-23 08:17] LABS: CALCIUM 7.8 mg/dL (8.5-10.1); CREATININE 1.8 mg/dL (0.6-1.0); MAGNESIUM 1.9 mg/dL (1.8-2.4); POTASSIUM 4.1 mmol/L (3.5-5.1); TROPONIN-I 0.09 ng/mL (<0.06)
[2017-09-23 09:45] VITALS: BP 139/86
[2017-09-23 12:00] VITALS: BP 140/86; BP 142/94
[2017-09-23 16:00] VITALS: BP 144/93
[2017-09-23 19:36] VITALS: BP 146/79
[2017-09-24 04:00] VITALS: BP 128/77
[2017-09-24 05:41] LABS: ABSOLUTE NEUTROPHILS 12.8 thou/uL (1.4-8.2); BASOPHILS 0.2 % (0.0-2.0); EOSINOPHILS 0.8 % (0.0-3.0); HEMATOCRIT 25.7 % (37.0-47.0); HEMOGLOBIN 8.5 gm/dL (12.0-15.0); LYMPHOCYTES 16.4 % (24.0-44.0); MCHC 33.2 g/dL (28.0-37.0); MCV 87.2 fL (80.0-100.0); MONOCYTES 4.5 % (1.0-8.0); PLATELET COUNT 202 thou/uL (150-400); POLYS 78.1 % (36.0-66.0); RBC 2.94 mil/uL (4.20-5.00); RDW 13.3 % (10.5-14.5); WBC 16.4 thou/uL (4.0-11.0)
[2017-09-24 05:48] LABS: CALCIUM 8.1 mg/dL (8.5-10.1); CREATININE 1.6 mg/dL (0.6-1.0); POTASSIUM 4.1 mmol/L (3.5-5.1)
[2017-09-24 07:20] VITALS: BP 130/71
[2017-09-24 12:00] VITALS: BP 126/73
[2017-09-24 16:15] VITALS: BP 120/70
[2017-09-24 19:28] VITALS: BP 140/80
[2017-09-25 04:13] VITALS: BP 133/80
[2017-09-25 05:44] LABS: CALCIUM 8.1 mg/dL (8.5-10.1); CREATININE 1.7 mg/dL (0.6-1.0); POTASSIUM 4.1 mmol/L (3.5-5.1)
[2017-09-25 05:48] LABS: ABSOLUTE NEUTROPHILS 11.7 thou/uL (1.4-8.2); BASOPHILS 0.5 % (0.0-2.0); EOSINOPHILS 0.7 % (0.0-3.0); HEMATOCRIT 26.3 % (37.0-47.0); HEMOGLOBIN 8.6 gm/dL (12.0-15.0); LYMPHOCYTES 18.2 % (24.0-44.0); MCH 28.6 pg (26.0-34.0); MCHC 32.8 g/dL (28.0-37.0); MCV 87.3 fL (80.0-100.0); MONOCYTES 4.7 % (1.0-8.0); PLATELET COUNT 208 thou/uL (150-400); POLYS 75.9 % (36.0-66.0); RBC 3.01 mil/uL (4.20-5.00); RDW 13.5 % (10.5-14.5); WBC 15.4 thou/uL (4.0-11.0)
[2017-09-25 07:00] VITALS: BP 126/65
[2017-09-25 12:03] VITALS: BP 139/108
[2017-09-25 15:50] VITALS: BP 14/88
[2017-09-25 18:46] VITALS: BP 137/72
[2017-09-25 22:09] LABS: COMPLEMENT-C4 30 mg/dL (14-44)
[2017-09-26 01:06] LABS: COMPLEMENT-C3 119 mg/dL (82-167)
[2017-09-26 03:15] VITALS: BP 131/83
[2017-09-26 06:35] LABS: BASOPHILS 0.3 % (0.0-2.0); EOSINOPHILS 0.3 % (0.0-3.0); LYMPHOCYTES 17.3 % (24.0-44.0); MCH 28.9 pg (26.0-34.0); MCHC 33.2 g/dL (28.0-37.0); MCV 87.1 fL (80.0-100.0); MONOCYTES 4.3 % (1.0-8.0); PLATELET COUNT 201 thou/uL (150-400); POLYS 77.8 % (36.0-66.0); RDW 13.2 % (10.5-14.5); WBC 16.7 thou/uL (4.0-11.0)
[2017-09-26 06:48] LABS: ALBUMIN 1.3 g/dL (3.4-5.0); CALCIUM 8.2 mg/dL (8.5-10.1); CREATININE 1.5 mg/dL (0.6-1.0); PHOSPHORUS 3.5 mg/dL (2.5-4.9); POTASSIUM 4.4 mmol/L (3.5-5.1)
[2017-09-26 08:06] VITALS: BP 119/76
[2017-09-26 12:09] VITALS: BP 121/67
[2017-09-26 17:43] VITALS: BP 135/75
[2017-09-26 19:14] VITALS: BP 146/81
[2017-09-27 04:22] VITALS: BP 140/81
[2017-09-27 06:55] LABS: ALBUMIN 1.3 g/dL (3.4-5.0); CALCIUM 7.9 mg/dL (8.5-10.1); CREATININE 1.6 mg/dL (0.6-1.0); PHOSPHORUS 4.1 mg/dL (2.5-4.9); POTASSIUM 4.4 mmol/L (3.5-5.1)
[2017-09-27 07:05] VITALS: BP 124/79
[2017-09-27 09:08] LABS: GLOBULIN TOTAL 4.4 g/dL (2.2-3.9); M-SPIKE Not Observed g/dL (Not Observed)
[2017-09-27 10:09] LABS: ANTI-DNA SCREEN 1 IU/mL (0-9); ANTI-RNP 0.4 AI (0.0-0.9)
[2017-09-27 11:27] VITALS: BP 103/60
[2017-09-27 17:14] VITALS: BP 139/81
[2017-09-27 19:03] VITALS: BP 118/65
[2017-09-28 03:44] VITALS: BP 134/79
[2017-09-28 06:42] LABS: CALCIUM 7.8 mg/dL (8.5-10.1); CREATININE 1.7 mg/dL (0.6-1.0); MAGNESIUM 1.7 mg/dL (1.8-2.4); POTASSIUM 4.4 mmol/L (3.5-5.1)
[2017-09-28 07:00] VITALS: BP 114/72
[2017-09-28 11:15] VITALS: BP 134/72
[2017-09-28 13:54] LABS: URINE BILIRUBIN NEGATIVE (Negative); URINE BLOOD 3+ (Negative); URINE CLARITY CLEAR; URINE COLOR YELLOW; URINE GLUCOSE-RANDOM* NEGATIVE (Negative); URINE KETONES NEGATIVE (Negative); URINE NITRITE-REFLEX NEGATIVE (Negative); URINE PROTEIN (DIPSTICK) 2+ (Negative); URINE SPECIFIC GRAVITY 1.025 (1.005-1.035); URINE UROBILINOGEN 0.2 E.U./dl (0.2-1.0)
[2017-09-28 13:56] LABS: PROT/CREAT RATIO 2.2; URINE CREATININE-RANDOM* 97.4 mg/dL
[2017-09-28 13:57] LABS: URINE LEUKOCYTES-REFLEX 2+ (Negative)
[2017-09-28 14:37] LABS: AMORPHOUS URATES Moderate /LPF (None Seen); CASTS None Seen /LPF (None Seen); SQUAMOUS None Seen /LPF (0-3); URINE RBC 3-10 Few /HPF (0-2); URINE WBC-REFLEX >25 Many /HPF (0-5); YEAST-REFLEX Present (None Seen)
[2017-09-28 16:05] VITALS: BP 128/73
[2017-09-28 19:04] VITALS: BP 140/89
[2017-09-29 04:15] VITALS: BP 132/83
[2017-09-29 04:54] LABS: ALBUMIN 1.2 g/dL (3.4-5.0); CREATININE 1.8 mg/dL (0.6-1.0); POTASSIUM 4.3 mmol/L (3.5-5.1)
[2017-09-29 08:03] VITALS: BP 127/82
[2017-09-29 12:54] VITALS: BP 130/80
[2017-09-29 18:16] VITALS: BP 130/78
[2017-09-29 19:10] VITALS: BP 114/68
[2017-09-30 03:49] VITALS: BP 99/61
[2017-09-30 06:00] LABS: ABSOLUTE NEUTROPHILS 6.2 thou/uL (1.4-8.2); BASOPHILS 0.6 % (0.0-2.0); HEMATOCRIT 21.1 % (37.0-47.0); MCH 28.6 pg (26.0-34.0); MCHC 33.3 g/dL (28.0-37.0); MCV 85.8 fL (80.0-100.0); MONOCYTES 5.2 % (1.0-8.0); PLATELET COUNT 221 thou/uL (150-400); POLYS 65.2 % (36.0-66.0); RBC 2.46 mil/uL (4.20-5.00); RDW 13.6 % (10.5-14.5); WBC 9.6 thou/uL (4.0-11.0)
[2017-09-30 06:19] LABS: ALBUMIN 1.2 g/dL (3.4-5.0); CALCIUM 7.8 mg/dL (8.5-10.1); CREATININE 1.6 mg/dL (0.6-1.0); MAGNESIUM 1.6 mg/dL (1.8-2.4); PHOSPHORUS 4.2 mg/dL (2.5-4.9); POTASSIUM 4.2 mmol/L (3.5-5.1)
[2017-09-30 07:40] VITALS: BP 108/66
[2017-09-30 11:20] VITALS: BP 103/61
[2017-09-30 16:12] VITALS: BP 101/62
[2017-09-30 18:55] VITALS: BP 110/70
[2017-10-01 03:55] VITALS: BP 109/71
[2017-10-01 05:56] LABS: HEMATOCRIT 22.2 % (37.0-47.0); HEMOGLOBIN 7.2 gm/dL (12.0-15.0); MCH 28.4 pg (26.0-34.0); MCHC 32.5 g/dL (28.0-37.0); MCV 87.4 fL (80.0-100.0); RBC 2.54 mil/uL (4.20-5.00); RDW 13.7 % (10.5-14.5); WBC 10.5 thou/uL (4.0-11.0)
[2017-10-01 06:14] LABS: ALBUMIN 1.3 g/dL (3.4-5.0); CALCIUM 7.9 mg/dL (8.5-10.1); CREATININE 1.8 mg/dL (0.6-1.0); PHOSPHORUS 4.9 mg/dL (2.5-4.9); POTASSIUM 4.7 mmol/L (3.5-5.1)
[2017-10-01 07:42] VITALS: BP 109/71
[2017-10-01 11:13] VITALS: BP 101/60
[2017-10-01 15:26] VITALS: BP 115/73
[2017-10-01 19:30] VITALS: BP 131/72
[2017-10-02 04:00] VITALS: BP 113/74
[2017-10-02 04:09] LABS: HEMATOCRIT 21.6 % (37.0-47.0); MCH 28.6 pg (26.0-34.0); MCHC 32.5 g/dL (28.0-37.0); MCV 87.8 fL (80.0-100.0); RBC 2.47 mil/uL (4.20-5.00); RDW 13.6 % (10.5-14.5); WBC 11.5 thou/uL (4.0-11.0)
[2017-10-02 04:16] LABS: ALBUMIN 1.2 g/dL (3.4-5.0); CALCIUM 8.1 mg/dL (8.5-10.1); CREATININE 1.9 mg/dL (0.6-1.0); PHOSPHORUS 4.2 mg/dL (2.5-4.9); POTASSIUM 4.6 mmol/L (3.5-5.1)
[2017-10-02 07:57] LABS: BE(vivo) 1.7 mmol/L (-2 to +3); HCO3 26.2 mmol/L (22.0-26.0); PO2 36.5 mmHg (80.0-100.0); pH 7.424 (7.360-7.450); sO2 71.1 % (92.0-98.0)
[2017-10-02 08:08] VITALS: BP 140/89
[2017-10-02 08:58] LABS: ALBUMIN 1.3 g/dL (3.4-5.0); DIRECT BILIRUBIN < 0.1 mg/dL (<0.1-0.3); SGOT 62 U/L (15-37); SGPT 31 U/L (30-65); TOTAL BILIRUBIN 0.2 mg/dL (<0.1-1.0); TOTAL PROTEIN 6.8 g/dL (6.4-8.2)
[2017-10-02 09:09] LABS: ABSOLUTE NEUTROPHILS 9.2 thou/uL (1.4-8.2); BASOPHILS 0.7 % (0.0-2.0); EOSINOPHILS 1.8 % (0.0-3.0); HEMATOCRIT 22.2 % (37.0-47.0); HEMOGLOBIN 7.2 gm/dL (12.0-15.0); MCH 28.6 pg (26.0-34.0); MCHC 32.6 g/dL (28.0-37.0); MCV 87.8 fL (80.0-100.0); MONOCYTES 3.1 % (1.0-8.0); PLATELET COUNT 261 thou/uL (150-400); POLYS 81.4 % (36.0-66.0); RBC 2.53 mil/uL (4.20-5.00); RDW 13.7 % (10.5-14.5); WBC 11.3 thou/uL (4.0-11.0)
[2017-10-02 10:47] LABS: BE(vivo) 2.7 mmol/L (-2 to +3); HCO3 27.5 mmol/L (22.0-26.0); PCO2 43.2 mmHg (35.0-45.0); PO2 69.4 mmHg (80.0-100.0); pH 7.421 (7.360-7.450); sO2 94.2 % (92.0-98.0)
[2017-10-02 11:22] LABS: ALBUMIN 1.3 g/dL (3.4-5.0); CALCIUM 8.2 mg/dL (8.5-10.1); CREATININE 1.9 mg/dL (0.6-1.0); PHOSPHORUS 4.5 mg/dL (2.5-4.9); POTASSIUM 4.4 mmol/L (3.5-5.1)
[2017-10-02 12:10] VITALS: BP 119/74
[2017-10-02 17:49] VITALS: BP 141/87
[2017-10-02 19:23] VITALS: BP 122/78
[2017-10-03 03:36] VITALS: BP 105/69
[2017-10-03 06:39] LABS: BE(vivo) 6.9 mmol/L (-2 to +3); HCO3 31.9 mmol/L (22.0-26.0); PCO2 48.1 mmHg (35.0-45.0); PO2 62.8 mmHg (80.0-100.0); pH 7.439 (7.360-7.450); sO2 92.6 % (92.0-98.0)
[2017-10-03 06:49] LABS: CALCIUM 8.4 mg/dL (8.5-10.1); CREATININE 1.9 mg/dL (0.6-1.0); POTASSIUM 4.3 mmol/L (3.5-5.1)
[2017-10-03 08:02] VITALS: BP 117/72
[2017-10-03 08:24] LABS: HEMATOCRIT 23.4 % (37.0-47.0); HEMOGLOBIN 7.4 gm/dL (12.0-15.0); MCH 28.2 pg (26.0-34.0); MCHC 31.8 g/dL (28.0-37.0); MCV 88.6 fL (80.0-100.0); RBC 2.64 mil/uL (4.20-5.00); WBC 9.7 thou/uL (4.0-11.0)
[2017-10-03 12:51] VITALS: BP 119/73
[2017-10-03 17:20] VITALS: BP 127/83
[2017-10-03 20:00] VITALS: BP 126/72
[2017-10-04 04:10] VITALS: BP 117/69
[2017-10-04 05:56] LABS: HEMATOCRIT 21.8 % (37.0-47.0); HEMOGLOBIN 6.9 gm/dL (12.0-15.0); MCH 28.2 pg (26.0-34.0); MCHC 31.8 g/dL (28.0-37.0); MCV 88.6 fL (80.0-100.0); RBC 2.46 mil/uL (4.20-5.00); WBC 8.9 thou/uL (4.0-11.0)
[2017-10-04 06:08] LABS: ALBUMIN 1.4 g/dL (3.4-5.0); CALCIUM 8.3 mg/dL (8.5-10.1); CREATININE 2.2 mg/dL (0.6-1.0); PHOSPHORUS 4.8 mg/dL (2.5-4.9); POTASSIUM 4.7 mmol/L (3.5-5.1)
[2017-10-04 07:20] VITALS: BP 112/72
[2017-10-04 11:50] VITALS: BP 110/70
[2017-10-04] MEDS ORDERED: IRON325 PO (12:39)
[2017-10-04] MEDS ORDERED: DUONEB 2.5-0.5 M3 ML INH (12:39)
[2017-10-04] MEDS ORDERED: CARVEDILOL3.125 MG PO (12:40)
[2017-10-04] MEDS ORDERED: ASPIR 8181 MG PO (12:41)
[2017-10-04] MEDS ORDERED: METOLAZONE 5 MG5 MG PO (12:42)
[2017-10-04] MEDS ORDERED: LASIX 40 MG TAB40 M2 PO (12:42)
[2017-10-04] MEDS ORDERED: PROTONIX40 M1 PO (12:42)
== END 2017-10-04 16:19 | DRG 177 ==
LOC: ER 19:13 → EROBS 20:53 → 3W 20:53
PROVIDERS: Emergency Medicine; Hospitalist; Internal Medicine; Internal Medicine Nephrology; Internal Medicine Pulmonary Disease; Nurse Practitioner Acute Care
PROC: 30233N1 Transfusion of Nonautologous Red Blood Cells into Peripheral Vein, Percutaneous Approach (ICD-10-PCS; principal; 2017-09-23)
DX: J69.0 Pneumonitis due to inhalation of food and vomit (principal); E43 Unspecified severe protein-calorie malnutrition; I50.23 Acute on chronic systolic (congestive) heart failure; J96.21 Acute and chronic respiratory failure with hypoxia; G93.40 Encephalopathy, unspecified; N17.9 Acute kidney failure, unspecified; J90 Pleural effusion, not elsewhere classified; N39.0 Urinary tract infection, site not specified; J96.11 Chronic respiratory failure with hypoxia; I13.0 Hypertensive heart and chronic kidney disease with heart failure and stage 1 through stage 4 chronic kidney disease, or unspecified chronic kidney disease; I42.9 Cardiomyopathy, unspecified; J44.9 Chronic obstructive pulmonary disease, unspecified; N18.9 Chronic kidney disease, unspecified; E11.22 Type 2 diabetes mellitus with diabetic chronic kidney disease; D72.829 Elevated white blood cell count, unspecified; J18.9 Pneumonia, unspecified organism; D64.9 Anemia, unspecified; F17.210 Nicotine dependence, cigarettes, uncomplicated; E11.42 Type 2 diabetes mellitus with diabetic polyneuropathy; K21.9 Gastro-esophageal reflux disease without esophagitis; D50.9 Iron deficiency anemia, unspecified; E83.42 Hypomagnesemia; I27.20 Pulmonary hypertension, unspecified; I08.1 Rheumatic disorders of both mitral and tricuspid valves; Z68.22 Body mass index [BMI] 22.0-22.9, adult; Z87.01 Personal history of pneumonia (recurrent); Z87.440 Personal history of urinary (tract) infections; Z79.4 Long term (current) use of insulin; Z79.899 Other long term (current) drug therapy; Z88.8 Allergy status to other drugs, medicaments and biological substances
CPT/HCPCS: 10879

== ENCOUNTER → 2017-10-17 | Outpatient (CLI) | payer OTHER ==
[~2017-10-17] MED LIST changes: +ACIDOPHILUS CA1 EAC1 PO; +AMMONIUM LACTA385 GM TOP; +ARGINAID POWDE1 EACH PO; +ASPIR 8181 MG PO; +CARVEDILOL3.125 MG PO; +DUONEB 2.5-0.5 M3 ML INH; +IRON325 PO; +LASIX 40 MG TAB40 M2 PO; +METOLAZONE 5 MG5 MG PO; +MULTIPLE VITAM1 EAC2 PO; +PROTEIN POWDER480 GM PO; +PROTONIX40 M1 PO; +TYLENOL325 M1 PO; +VITAMIN C500 M2 PO
[2017-10-17 08:30] VITALS: BP 123/78
[2017-10-17 08:45] LABS: HEMOGLOBIN 6.5 gm/dL (12.0-15.0)
[2017-10-17 08:46] LABS: HEMATOCRIT 20.1 % (37.0-47.0)
[2017-10-17 10:45] VITALS: BP 119/71; BP 132/82
[2017-10-17 13:17] VITALS: BP 114/67; BP 132/82
== END ==
LOC: OPONC 07:30
PROVIDERS: Internal Medicine
DX: D64.9 Anemia, unspecified (principal)
CPT/HCPCS: 91030